=== PATIENT | male | born 1945 | race Caucasian/White ===

== ENCOUNTER 2022-08-13 17:47 | Emergency (ER) | payer OTHER, SELFPAY ==
[2022-08-13 18:10] VITALS: BP 143/88; PULSE 76; RESP 14; TEMP 36.7; O2SAT 92
--- NOTE | 2022-08-13 20:21 | CTR_ITS ---
PROCEDURE INFORMATION: Exam: CT Abdomen And Pelvis Without Contrast Exam date and time: 08/13/2022 8:46 PM Age: 77 years old Clinical indication: Abdominal pain; Localized; Left lower quadrant (llq); Patient HX: C/O llq pain with dysuria. TECHNIQUE: Imaging protocol: Computed tomography of the abdomen and pelvis without contrast. Radiation optimization: All CT scans at this facility use at least one of these dose optimization techniques: automated exposure control; mA and/or kV adjustment per patient size (includes targeted exams where dose is matched to clinical indication); or iterative reconstruction. COMPARISON: No relevant prior studies available. RADIATION DOSE METRICS: Total DLP (mGy-cm): 899.51 FINDINGS: Lungs: [id number] areas of bilateral mid to lower lung atelectasis or scarring. Liver: Unremarkable. No discrete mass. Gallbladder and bile ducts: Multiple small calcified gallstones are visualized. Pancreas: Unremarkable with no suspicious mass. No ductal dilation. Spleen: The spleen is not enlarged. No suspicious mass is noted. Adrenal glands: Normal. No mass. Kidneys and ureters: A couple of left renal cysts measure up to 1.9 cm. A couple of right-sided ones measure up to 2.7 cm. Kidneys show no solid mass or hydronephrosis. Stomach and bowel: Very severe sigmoid diverticulosis with evidence of surrounding fat stranding. No abscess or free air. No small bowel obstruction. This process involves the descending and sigmoid colon. Moderate underlying constipation as well. No small bowel wall thickening. Appendix: No evidence of appendicitis. Intraperitoneal space: See Stomach and bowel finding. Vasculature: Advanced diffuse vascular calcification noted. Lymph nodes: No enlarged lymph nodes. Urinary bladder: Mildly distended bladder. There is minimal left-sided bladder wall thickening possible. Reproductive: The prostate is mildly enlarged with a few coarse internal calcifications. Bones/joints: Multiple old left rib deformities are visualized. Severe L1-S1 degenerative change and DDD. Soft tissues: No acute or suspicious finding noted. CT/CT abdomen pelvis wo con [id number] IMPRESSION: 1. Severe left-sided colonic diverticulitis as described with no abscess or free air. 2. Possible minimal/early adjacent left-sided cystitis. 3. Severe atherosclerosis, lung base scarring, cholelithiasis, and numerous other chronic findings above. COMMENTS: Consistent with the [employer]'s Incidental Findings Committee white paper (J Am Heron Radiol 2018): Any incidental renal lesion less than 1 cm or classified as too small to characterize, or any incidental cystic renal lesion characterized as simple-appearing, is likely benign. No follow-up imaging is recommended for these lesions per consensus recommendations based on imaging criteria.
--- NOTE | 2022-08-13 20:25 | W.ED.ABDPA2 ---
HPI - Abdominal Pain General: Chief Complaint: Abdominal Pain Stated Complaint: Abd pain, unable to urinate Time Seen by Provider: 08/13/22 20:19 Source: patient Mode of arrival: ambulatory Limitations: no limitations History of Present Illness: 77-year-old male who states that he has been having left lower quadrant abdominal pain over the last 5 days. States pain is been sharp in nature he states that he has had some slight difficulty urinating states pain is much worse with palpation denies any fever denies any blood in his stool denies any diarrhea states pain is currently 5 out of 10. Associated Symptoms: Denies chills, dysuria, fever(s) and hematuria Review of Systems Const: Denies: fever(s), chills, body aches or change in appetite Eyes: Denies: blurry vision or eye discomfort ENMT: Denies: throat pain or dental pain Card: Denies: chest pain Resp: Denies: dyspnea GI: Reports: abdominal pain : Denies: dysuria or hematuria Musc: Denies: neck pain or back pain Skin/Breast: Denies: rash Neuro: Denies: headache(s) Psych: Denies: depression Matthew/Lymph: Denies: easy bruising All/Imm: Denies: urticaria PFSH ED PFSH: Medical History Mitral valve disorder PTSD (post-traumatic stress disorder) Recurrent depressive disorder Sciatica Type 2 diabetes mellitus Social History Smoking and tobacco status: former smoker Physical Exam Const: COMMON NORMALS: no acute distress, patient oriented x3 and healthy appearing HENMT: COMMON NORMALS: normocephalic and atraumatic HEAD & SCALP: normocephalic and atraumatic Eye: COMMON NORMALS: Equal, round and reactive pupils present and EOMs intact bilaterally PUPIL: Yes Equal, round and reactive pupils present Neck/C-Spine: COMMON NORMALS: full ROM and supple Chest: COMMONS NORMALS: normal inspection of the chest and normal palpation of entire chest wall Resp: COMMON NORMALS: normal respiratory effort, No retractions, No use of accessory muscles and clear to auscultation bilaterally AUSCULTATION: clear to auscultation bilaterally Cardio: COMMON NORMALS: regular rate, regular rhythm and No murmurs present (Cardio) RATE: regular rate RHYTHM: regular rhythm GI: COMMON NORMALS: Normal to inspection, nondistended, normoactive bowel sounds present, Soft to palpation and no masses PALPATION: Yes Soft to palpation and Yes Tenderness to palpation present (GI) Details: LLQ Extremity: COMMON NORMALS: normal to inspection and full ROM Neuro: COMMON NORMALS: patient oriented x3, moves all extremities and no focal motor deficits Psych: COMMON NORMALS: mental status grossly normal, Normal thought process present and cooperative THOUGHT PROCESS: Normal thought process present Skin: COMMON NORMALS: no rashes or lesions noted and no wounds GENERAL SKIN EXAM: no rashes or lesions noted Course Vital Signs: Vital signs: Vital Signs Temperature 98.0 F 08/13/22 18:10 Pulse Rate 76 08/13/22 18:10 Respiratory Rate 18 08/13/22 20:33 Blood Pressure 143/88 08/13/22 18:10 Pulse Oximetry 94 08/13/22 20:33 Oxygen Delivery Me thod 08/13/22 18:10 MDM - Abdominal Pain Medical Decision Making Patient presents here with diverticulitis his pain is improved here I did inform him his CT shows severe diverticulitis I strongly recommended admission informed him this could worsen he could have an abscess or perforation he states that his has a procedure and he is not able to stay I again reiterated rated that I would strongly recommend him being admitted he states he wants to try oral antibiotics first inform if he has any worsening symptoms at all he is to return immediately he understands Lab Data 08/13/22 20:25 08/13/22 20:25 Labs/Radiology: Radiology Impressions Abdomen/Pelvis CT 08/13/22 20:21 IMPRESSION: 1. Severe left-sided colonic diverticulitis as described with no abscess or free air. 2. Possible minimal/early adjacent left-sided cystitis. 3. Severe atherosclerosis, lung base scarring, cholelithiasis, and numerous other chronic findings above. COMMENTS: Consistent with the [employer] [place]'s Incidental Findings Committee white paper (J Am Heron Radiol 2018): Any incidental renal lesion less than 1 cm or classified as too small to characterize, or any incidental cystic renal lesion characterized as simple-appearing, is likely benign. No follow-up imaging is recommended for these lesions per consensus recommendations based on imaging criteria. Laboratory Results WBC 13.1 10^3/uL (4.0-10.0) H 08/13/22 20:25 RBC 4.66 10^6/uL (4.1-5.3) 08/13/22 20:25 Hgb 14.4 g/dL (11.7-16.6) 08/13/22 20:25 Hct 42.8 % (42.0-52.0) 08/13/22 20:25 MCV 91.8 fl (80-94) 08/13/22 20:25 MCH 30.9 pg (28.0-34.0) 08/13/22 20: MCHC 33.6 g/dL (30.0-36.0) 08/13/22 20: RDW 15.7 % (12.1-15.1) H 08/13/22 20:25 Plt Count 149 10^3/cmm (130-400) 08/13/22 20: MPV 10.4 fL (7.4-10.4) 08/13/22 20:25 Neut % (Auto) 80.1 % 08/13/22 20:25 Lymph % (Auto) 12.1 % 08/13/22 20:25 [place] % (Auto) 5.1 % 08/13/22 20:25 Eos % (Auto) 1.4 % 08/13/22 20: Baso % (Auto) 0.4 % 08/13/22:25 Neut # (Auto) 10.47 10^3/uL (1.8-7.7) H 08/13/22 20:25 Lymph # (Auto) 1.6 10^3/uL (0.8-4.8) 08/13/22 20:25 [place] # (Auto) 0.7 10^3/uL (0.2-0.9) 08/13/22: Eos # (Auto) 0.2 10^3/uL (0.0-0.8) 08/13/22 20: Baso # (Auto) 0.1 10^3/uL (0.0-0.1) 08/13/22 20: Nucleated RBC % (auto) 0 % 08/13/22 20: Nucleated RBCs # 0.0 /100WBC 08/13/22 20:25 Sodium 133 mmol/L (136-145) L 08/13/22 20:25 Potassium 4.1 mmol/L (3.5-5.1) 08/13/22 20:25 Chloride 97 mmol/L (98-107) L 08/13/22 20:25 Carbon Dioxide 26 mmol/L (22-29) 08/13/22 20:25 Anion Gap 14.1 (5-19) 08/13/22 20:25 BUN 10 mg/dL (8-23) 08/13/22 20:25 Creatinine 0.7 mg/dL (0.7-1.2) 08/13/22 20:25 GFR Calculation Not Reportable 08/13/22 20:25 Glucose 101 mg/dL (65-115) 08/13/22 20:25 Calculated Osmolality 275 mOsm/kg (285-295) L 08/13/22 20:25 Calcium 9.2 mg/dL (8.5-10.5) 08/13/22 20:25 Total Bilirubin 1.1 mg/dL (0.15-1.2) 08/13/22 20:25 AST 13 U/L (0-40) 08/13/22 20:25 ALT 15 U/L (0-41) 08/13/22 20:25 Alkaline Phosphatase 69 U/L (40-130) 08/13/22 20:25 Total Protein 7.6 g/dL (6.6-8.7) 08/13/22 20:25 Albumin 4.5 g/dL (3.5-5.2) 08/13/22 20:25 Globulin 3.1 g/dL (1.3-4.6) 08/13/22 20:25 Lipase 26 U/L (13-60) 08/13/22 20:25 Urine Color Yellow (Yellow) 08/13/22 Unknown Urine Appearance Clear (CLEAR) 08/13/22 Unknown Urine pH 6 (5-7) 08/13/22 Unknown Ur Specific [place] 1.005 (1.005-1.030) 08/13/22 Unknown Urine Protein Neg (Negative) 08/13/22 Unknown Urine Glucose (UA) Norm (Normal) 08/13/22 Unknown Urine Ketones Negative (Negative) 08/13/22 Unknown Urine Blood Neg (Negative) 08/13/22 Unknown Urine Nitrate Negative (Negative) 08/13/22 Unknown Urine Bilirubin Neg (Negative) 08/13/22 Unknown Urine Urobilinogen 1 mg/dL (Negative) H 08/13/22 Unknown Ur Leukocyte Esterase Negative (Negative) 08/13/22 Unknown Discharge Plan Discharge Patient Disposition: Home Clinical Impression: Diverticulitis Condition: Stable Prescriptions: New hydrocodone-acetaminophen 5-325 mg tablet 1 tab PO Q6H PRN (Reason: pain) Qty: 14 0RF metronidazole 500 mg tablet 500 mg PO Q8H 7 Days Qty: 21 0RF Cipro 500 mg tablet 500 mg PO BID Qty: 14 0RF ondansetron 4 mg tablet,disintegrating 4 mg PO Q6H PRN (Reason: nausea and vomiting) Qty: 14 0RF No Action buspirone 10 mg tablet 10 mg PO BID cholecalciferol (vitamin D3) 50 mcg (2,000 unit) capsule 50 mcg PO DAILY fluticasone propionate 250 mcg/actuation blister with device 1 inh inhalation BID gabapentin 600 mg tablet 600 mg PO DAILY quetiapine 400 mg tablet 400 mg PO BID losartan 50 mg tablet 50 mg PO DAILY metformin 1,000 mg tablet 1,000 mg PO DAILY sertraline 100 mg tablet 100 mg PO DAILY vitamin B complex [B Complex-Vitamin B12] Tablet 1 tab PO DAILY atorvastatin 40 mg tablet 40 mg PO DAILY Discharge Orders: Discharge ED (Routine); Ordered 08/13/22 Ordered By: Luis E Randolph Referrals: Delio Her [Primary Care Provider] - 1-3 days Discharge Diet: Advance as tolerated Discharge Activity: Resume usual activity Patient Instructions: Diverticulitis (ED), Opioid Safety, Pain Management Coding Level of Care Code ED Golf Cart Mechanic for Chg Fwd Exam Comprehensive
[2022-08-13 20:31] LABS: Basophils # 0.1 10^3/uL (0.0-0.1); Basophils % 0.4 %; Eosinophils # 0.2 10^3/uL (0.0-0.8); Eosinophils % 1.4 %; Hematocrit 42.8 % (42.0-52.0); Hemoglobin 14.4 g/dL (11.7-16.6); Lymphocytes # 1.6 10^3/uL (0.8-4.8); Lymphocytes % 12.1 %; Mean Corpuscular HGB Conc 33.6 g/dL (30.0-36.0); Mean Corpuscular Hemoglobin 30.9 pg (28.0-34.0); Mean Corpuscular Volume 91.8 fl (80-94); Mean Platelet Volume 10.4 fL (7.4-10.4); Monocytes # 0.7 10^3/uL (0.2-0.9); Monocytes % 5.1 %; Neutrophils # 10.47 10^3/uL (1.8-7.7); Neutrophils % 80.1 %; Nucleated Red Blood Cells % 0 %; Platelet Count 149 10^3/cmm (130-400); Red Blood Count 4.66 10^6/uL (4.1-5.3); Red Cell Distribution Width 15.7 % (12.1-15.1); White Blood Count 13.1 10^3/uL (4.0-10.0)
[2022-08-13] MEDS: sodium chloride 0.9% 1,000 ML 999 ML IV (20:32)
[2022-08-13 20:33] VITALS: RESP 18; O2SAT 94
[2022-08-13] MEDS: ondansetron 2 mg/ML SDV 2 mL 4 MG IVP (20:33)
[2022-08-13] MEDS: morphine 4 mg/mL SDV 1 mL IVP (20:33)
[2022-08-13 20:49] LABS: Alanine Aminotransferase 15 U/L (0-41); Albumin Level 4.5 g/dL (3.5-5.2); Alkaline Phosphatase 69 U/L (40-130); Anion Gap 14.1 (5-19); Aspartate Amino Transferase 13 U/L (0-40); Blood Urea Nitrogen 10 mg/dL (8-23); Calcium 9.2 mg/dL (8.5-10.5); Carbon Dioxide 26 mmol/L (22-29); Chloride 97 mmol/L (98-107); Globulin 3.1 g/dL (1.3-4.6); Glucose 101 mg/dL (65-115); Lipase 26 U/L (13-60); Osmolality Calculated 275 mOsm/kg (285-295); Potassium 4.1 mmol/L (3.5-5.1); Sodium 133 mmol/L (136-145); Total Bilirubin 1.1 mg/dL (0.15-1.2); Total Protein 7.6 g/dL (6.6-8.7)
[2022-08-13] MEDS: ciprofloxacin 400 MG/200 ML PREMIX 200 MG IV (21:36)
[2022-08-13 21:42] LABS: Add Urine Microscopic? NO; Charge for UA Resulting for Rev
[2022-08-13 21:49] LABS: Bilirubin Urine Neg (Negative); Blood Urine Neg (Negative); Glucose Urine UA Norm (Normal); Ketones Urine Negative (Negative); Leukocyte Esterase Urine Negative (Negative); Nitrate Urine Negative (Negative); Protein Urine Neg (Negative); Specific Gravity, Urine 1.005 (1.005-1.030); Urine Appearance Clear (CLEAR); Urine Color Yellow (Yellow); Urobilinogen Urine 1 mg/dL (Negative); pH Urine 6 (5-7)
[2022-08-13] MEDS: metroNIDAZOLE IV 500 MG/100 ML PREMIX 100 MG IV (21:56)
[2022-08-13 23:09] VITALS: BP 132/71; PULSE 66; RESP 18; O2SAT 93
== END 2022-08-13 23:09 | disposition home or self-care (01) ==
PROVIDERS: Emergency Provider Emergency Medicine; PCP Internal Medicine
DX: K57.92 Diverticulitis of intestine, part unspecified, without perforation or abscess without bleeding (principal); Z79.84 Long term (current) use of oral hypoglycemic drugs; E11.9 Type 2 diabetes mellitus without complications; Z87.891 Personal history of nicotine dependence
CPT/HCPCS: 74176; 80053; 81003; 83690; 85025; 96365; 96367; 96375; 99285; J0744; J2270; J2405; J3490; J7030

== ENCOUNTER 2023-11-18 12:39 | Emergency (ER) | payer OTHER, SELFPAY ==
[2023-11-18 12:42] VITALS: BP 146/80; PULSE 59; RESP 17; TEMP 36.7; O2SAT 94; BMI 28.5
--- NOTE | 2023-11-18 12:56 | XR_ITS ---
WS: [id number] Examination: XR chest 1V portable [id number] Reason for Exam: sob Date: November 18, 2023 Comparison: August 08, 2015 Findings: The heart is not grossly enlarged. The mediastinum is not widened There is no pulmonary edema or large pleural effusion. I see no dense consolidation Old healed left rib fractures are noted. Chronic changes of the shoulders are noted. Impression: No acute lung process is appreciated.
[2023-11-18 13:26] LABS: Basophils # 0.1 10^3/uL (0.0-0.1); Basophils % 0.8 %; Eosinophils # 0.3 10^3/uL (0.0-0.8); Eosinophils % 3.5 %; Hematocrit 36.5 % (37-53); Lymphocytes # 0.6 10^3/uL (0.8-4.8); Lymphocytes % 8.1 %; Mean Corpuscular HGB Conc 34.5 g/dL (30-55); Mean Corpuscular Hemoglobin 30.1 pg (27-33); Mean Corpuscular Volume 87.3 fl (82-101); Mean Platelet Volume 10.3 fL (7.4-10.4); Monocytes # 0.6 10^3/uL (0.2-0.9); Monocytes % 7.7 %; Neutrophils # 6.03 10^3/uL (1.8-7.7); Neutrophils % 78.6 %; Nucleated Red Blood Cells % 0 %; Platelet Count 239 10^3/cmm (157-399); Red Blood Count 4.18 10^6/uL (3.85-5.65); Red Cell Distribution Width 14.5 % (12.1-15.1); White Blood Count 7.67 10^3/uL (3.29-11.43)
[2023-11-18 13:51] LABS: Alanine Aminotransferase 11 U/L (0-41); Albumin Level 4.5 g/dL (3.5-5.2); Alkaline Phosphatase 92 U/L (40-130); Anion Gap 16.3 (5-19); Aspartate Amino Transferase 13 U/L (0-40); Blood Urea Nitrogen 14 mg/dL (8-23); Calcium 9.9 mg/dL (8.5-10.5); Carbon Dioxide 23 mmol/L (22-29); Chloride 99 mmol/L (98-107); Creatinine Clr Calc Pharmacy 81.3574; Globulin 2.9 g/dL (1.3-4.6); Glucose 118 mg/dL (65-115); NT Pro B Type Natriuretic Pept 91 pg/mL (0-450); Osmolality Calculated 280 mOsm/kg (285-295); Potassium 4.3 mmol/L (3.5-5.1); Sodium 134 mmol/L (136-145); Total Bilirubin 1.6 mg/dL (0.15-1.2); Total Protein 7.4 g/dL (6.6-8.7)
--- NOTE | 2023-11-18 14:06 | PC.PHAR ---
Addendum entered by Mae Mills 11/18/23 14:53: [facility] DID NOT INCLUDE BUSPIRONE 10MG, FLONASE 50MCG, NORCO 5-325,ZOFRAN 4MG ODT, AND SERTRALINE 100MG. ALL HAVE BEEN REMOVED FROM PT MEDICATION LIST. 11/18/23 Original Note: FAXED [facility] 2:05PM 11/18/23
[2023-11-18 14:07] LABS: D Dimer 0.34 ug/mLFEU (0-0.59)
--- NOTE | 2023-11-18 14:07 | ED_ITS ---
HPI - SOB/Dyspnea 2 General: Chief Complaint: Shortness of Breath/Dyspnea Stated Complaint: sob Time Seen by Provider: 11/18/23 13:36 Source: patient Mode of arrival: ambulatory Limitations: no limitations History of Present Illness: HPI Narrative: 78-year-old male has a history of COPD s tates that over the last 2 weeks he has had increasing shortness of breath. He states that his feels like he cannot get deep expirations and worsens with exertion. He denies any chest pain denies any cough or fever. He is in no distress currently. Associated symptoms: Deny abdominal pain, chest pain, fever(s), nausea or vomiting Review of Systems 2 Const: Denies: fever(s), chills, body aches or change in appetite ENMT: Denies: throat pain or dental pain Card: Denies: chest pain Resp: Reports: dyspnea GI: Denies: abdominal pain, nausea, vomiting or diarrhea Musc: Denies: neck pain or back pain Skin/Breast: Denies: rash Neuro: Denies: headache(s) PFSH ED 2 PFSH: Medical History Mitral valve disorder PTSD (post-traumatic stress disorder) Recurrent depressive disorder Sciatica Type 2 diabetes mellitus Social History Smoking and tobacco/nicotine status: former use of tobacco/nicotine Physical Exam 2 Const: COMMON NORMALS: no acute distress, patient oriented x3 and healthy appearing HENMT: COMMON NORMALS: normocephalic and atraumatic HEAD & SCALP: n ormocephalic and atraumatic Neck/C-Spine: COMMON NORMALS: full ROM and supple Chest: COMMONS NORMALS: normal inspection of the chest and normal palpation of entire chest wall Resp: COMMON NORMALS: normal respiratory effort, No retractions, No use of accessory muscles and clear to auscultation bilaterally AUSCULTATION: clear to auscultation bilaterally Cardio: COMMON NORMALS: regular rate, regular rhythm and No murmurs present (Cardio) RATE: regular rate RHYTHM: regular rhythm GI: COMMON NORMALS: Normal to inspection, nondistended, normoactive bowel sounds present, Soft to palpation, non-tender and no masses PALPATION: Yes Soft to palpation Extremity: COMMON NORMALS: normal to inspection and full ROM Neuro: COMMON NORMALS: patient oriented x3, moves all extremities and no focal motor deficits Psych: COMMON NORMALS: mental status grossly normal, Normal thought process present and cooperative THOUGHT PROCESS: Normal thought process present Skin: COMMON NORMALS: no rashes or lesions noted and no wounds GENERAL SKIN EXAM: no rashes or lesions noted Course 2 Vital Signs: Vital signs: Vital Signs Temperature 98.0 F 11/18/23 12:42 Pulse Rate 79 11/18/23 15:24 Respiratory Rate 16 11/18/23 15:24 Blood Pressure 125/82 11/18/23 15:24 Pulse Oximetry 94 11/18/23 15:24 Oxygen Delivery Me thod Room Air 11/18/23 15:01 MDM - SOB/Dyspnea Medical Decision Making Patient presents here with COPD exacerbation D-dimer is negative no signs of PE he has no chest pain no signs of coronary artery disease he has no signs of pneumonia we will place him on 5 days of steroids he is follow-up PCP return if worsening he understands agrees to plan. Medical Records I reviewed the patient's medical records. Lab Data I reviewed the patient's lab results. 11/18/23 13:18 11/18/23 13:18 Labs/Radiology: Laboratory Results WBC 7.67 10^3/uL (3.29-11.43) 11/18/23 13:18 RBC 4.18 10^6/uL (3.85-5.65) 11/18/23 13:18 Hgb 12.60 g/dL (11.27-16.99) 11/18/23 13:18 Hct 36.5 % (37-53) L 11/18/23 13:18 MCV 87.3 fl (82-101) 11/18/23 13:18 MCH 30.1 pg (27-33) 11/18/23 13:18 MCHC 34.5 g/dL (30-55) 11/18/23 13:18 RDW 14.5 % (12.1-15.1) 11/18/23 13:18 Plt Count 239 10^3/cmm (157-399) 11/18/23 13:18 MPV 10.3 fL (7.4-10.4) 11/18/23 13:18 Neut % (Auto) 78.6 % 11/18/23 13:18 Lymph % (Auto) 8.1 % 11/18/23 13:18 [place] % (Auto) 7.7 % 11/18/23 13:18 Eos % (Auto) 3.5 % 11/18/23 13:18 Baso % (Auto) 0.8 % 11/18/23 13:18 Neut # (Auto) 6.03 10^3/uL (1.8-7.7) 11/18/23 13:18 Lymph # (Auto) 0.6 10^3/uL (0.8-4.8) L 11/18/23 13:18 [place] # (Auto) 0.6 10^3/uL (0.2-0.9) 11/18/23 13:18 Eos # (Auto) 0.3 10^3/uL (0.0-0.8) 11/18/23 13:18 Baso # (Auto) 0.1 10^3/uL (0.0-0.1) 11/18/23 13:18 Nucleated RBC % (auto) 0 % 11/18/23 13:18 Nucleated RBCs # 0.0 /100WBC 11/18/23 13:18 D-Dimer 0.34 ug/mLFEU (0-0.59) 11/18/23 13:18 Sodium 134 mmol/L (136-145) L 11/18/23 13:18 Potassium 4.3 mmol/L (3.5-5.1) 11/18/23 13:18 Chloride 99 mmol/L (98-107) 11/18/23 13:18 Carbon Dioxide 23 mmol/L (22-29) 11/18/23 13:18 Anion Gap 16.3 (5-19) 11/18/23 13:18 BUN 14 mg/dL (8-23) 11/18/23 13:18 Creatinine 0.9 mg/dL (0.7-1.2) 11/18/23 13:18 GFR Calculation Not Reportable 11/18/23 13:18 Glucose 118 mg/dL (65-115) H 11/18/23 13:18 Calculated Osmolality 280 mOsm/kg (285-295) L 11/18/23 13:18 Calcium 9.9 mg/dL (8.5-10.5) 11/18/23 13:18 Total Bilirubin 1.6 mg/dL (0.15-1.2) H 11/18/23 13:18 AST 13 U/L (0-40) 11/18/23 13:18 ALT 11 U/L (0-41) 11/18/23 13:18 Alkaline Phosphatase 92 U/L (40-130) 11/18/23 13:18 NT-Pro-B Natriuret Pep 91 pg/mL (0-450) 11/18/23 13:18 Total Protein 7.4 g/dL (6.6-8.7) 11/18/23 13:18 Albumin 4.5 g/dL (3.5-5.2) 11/18/23 13:18 Globulin 2.9 g/dL (1.3-4.6) 11/18/23 13:18 All radiology interpretation(s) finalized by discharge EKG Data EKG 1: I personally reviewed and interpreted this EKG as follows: EKG Interpretation Date: 11/18/23 EKG interpretation time: 14:09 Interpretation: nsr hr [address] or t wave abnormalities qrs 89 qtc 398 Discharge Plan Discharge Patient Disposition: Home Clinical Impression: Acute exacerbation of chronic obstructive airways disease Condition: Stable Prescriptions: New prednisone 50 mg tablet 50 mg PO DAILY Qty: 5 0RF No Action cholecalciferol (vitamin D3) 50 mcg (2,000 unit) capsule 50 mcg PO DAILY gabapentin 600 mg tablet 600 mg PO DAILY quetiapine 400 mg tablet 200 mg PO BEDTIME losartan 50 mg tablet 25 mg PO DAILY metformin 1,000 mg tablet 500 mg PO BID vitamin B complex [B Complex-Vitamin B12] Tablet 1 tab PO QAM atorvastatin 20 mg Tablet 10 mg PO QPM saw palmetto 160 mg Capsule 160 mg PO DAILY Rx Instructions: give with meal/snack Discharge Orders: Discharge ED (Routine); Ordered 11/18/23 Ordered By: Luis E Randolph Referrals: Ida Mcdaniel MD [Primary Care Provider] - 1-3 days Discharge Diet: Advance as tolerated Discharge Activity: Resume usual activity Patient Instructions: COPD (Chronic Obstructive Pulmonary Disease) (ED) Coding Level of Care Code ED Plating Technician for Yolig Janie
--- NOTE | 2023-11-18 14:09 | ECG_ITS ---
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 Measurements Intervals [place] Rate: 73 P: 20 ND: 157 QRS: 22 QRSD: 89 T: 60 QT: 372 QTc: 412 Interpretive Statements SINUS RHYTHM No previous ECG available for comparison Electronically Signed On 11-18-2023 14:11:54 CDT by Lacho Joaquin M.D. [email or web address]
[2023-11-18] MEDS: methylPREDNISolone sod succ 125 mg/2 mL INJ IVP (14:14)
[2023-11-18 14:17] VITALS: BP 123/81; PULSE 71; RESP 18; O2SAT 97
[2023-11-18 14:30] VITALS: PULSE 82; RESP 16; O2SAT 97
[2023-11-18] MEDS: ipratropium-albuterol 3 mL Neb INHALATION (14:33)
[2023-11-18 15:01] VITALS: PULSE 77; RESP 16; O2SAT 95
[2023-11-18 15:24] VITALS: BP 125/82; PULSE 79; RESP 16; O2SAT 94
== END 2023-11-18 15:25 | disposition home or self-care (01) ==
PROVIDERS: Emergency Provider Emergency Medicine; PCP Family Medicine
DX: J44.1 Chronic obstructive pulmonary disease with (acute) exacerbation (principal); Z79.84 Long term (current) use of oral hypoglycemic drugs; E11.9 Type 2 diabetes mellitus without complications; Z87.891 Personal history of nicotine dependence
CPT/HCPCS: 36415; 71045; 80053; 83880; 85025; 85378; 93005; 94640; 96374; 99285; J2919